=== PATIENT | female | born 2000 | race Hispanic/Latino ===

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

== ENCOUNTER 2023-10-28 18:36 | Emergency (ER) | payer OTHER ==
[~2023-10-28] VITALS: Ht 160 cm; Wt 117.9 kg
[~2023-10-28 18:36] MED LIST changes: +NAPROSYN500 MG PO
[2023-10-28 18:51] VITALS: PULSE 91; RESP 18; TEMP 97.5
[2023-10-28] MEDS ORDERED: CEFDINIR300 MG PO (19:11)
[2023-10-28] MEDS ORDERED: TYLENOL325 MG PO (19:11)
[2023-10-28] MEDS ORDERED: LIDOCAINE HCL 1% LOCAL INJ 20 ML VIAL ONE (19:20)
[2023-10-28] MEDS: CEFTRIAXONE 1 GM VIAL IM ONE (19:22)
[2023-10-28 19:36] VITALS: BP 114/70; PULSE 91; RESP 18; TEMP 97.5; O2SAT 98
== END 2023-10-28 19:36 | disposition home or self-care (01) ==
LOC: FSED 18:39
DX: O23.43 Unspecified infection of urinary tract in pregnancy, third trimester (principal); R39.89 Other symptoms and signs involving the genitourinary system; R30.0 Dysuria
CPT/HCPCS: 81003; 96372; 99282; J0696; J2001